=== PATIENT | female | born 1965 | race American Indian/Alaskan Native ===

== ENCOUNTER 2017-05-02 14:22 | Emergency (ER) | payer OTHER ==
[2017-05-02 15:42] VITALS: BP 148/96
[2017-05-02] MEDS ORDERED: CLEOCIN IM ONE (17:42)
[2017-05-02] MEDS ORDERED: PEPCID PO ONE (17:42)
[2017-05-02] MEDS ORDERED: DECADRON IM ONE (17:42)
--- NOTE | 2017-05-02 17:42 | Emergency Department Report ---
HPI - General Chief Complaint: Allergic Reaction Time Seen by Provider: 05/02/17 17:42 - HPI HPI: Patient here report that she has a allergic reaction from an bite yesterday. She states she took and off but she felt like her shoes was tight today at work and took her shoe off and repeat port that her left foot was red and swollen. She denies any shortness of breath or chest pain. Denies any personal history of blood clots or family history of blood clots. Denies any nausea or vomiting. Denies any fever or chills. Pain to foot is 8 out of 10 and dull. He has a history of asthma and surgical history of partial hysterectomy. Denies any numbness or tingling to extremities. Denies any loss of sensation to left foot. She says she took Benadryl and it helped the itching yesterday but now her foot is red and swollen. She denies any difficulty breathing. He denies any cough, stridor or wheezing. Denies any problem with swallowing or swelling his neck. ED Past Medical Hx - Past Medical History Previous Medical History?: Yes Hx Asthma: Yes - Surgical History Past Surgical History?: Yes Additional Surgical History: plastic surgery to face, Partial hysterectomy - Family History Family history: no significant - Social History Smoking Status: Never Smoker Substance Use Type: None - Medications Home Medications: Home Medications Medication Instructions Recorded Confirmed Last Taken Type Acetaminophen/Codeine 1 tab PO Q6H PRN #15 tab 09/13/14 Unknown Rx [Acetaminophen-Codeine #3 TAB] Ibuprofen [Motrin 800 MG tab] 800 mg PO TID PRN #21 tablet 09/13/14 Unknown Rx Cetirizine HCl [ZyrTEC] 10 mg PO QAM #7 capsule 05/02/17 Unknown Rx Clindamycin [Clindamycin CAP] 300 mg PO Q8H #30 cap 05/02/17 Unknown Rx predniSONE [Deltasone] 50 mg PO QDAY #5 tab 05/02/17 Unknown Rx ED Review of Systems ROS: Stated complaint: ALLERGIC RXN, ANT BITES Other details as noted in HPI Comment: All other systems reviewed and negative Constitutional: no symptoms reported ENT: denies: throat pain, congestion Respiratory: no symptoms reported Cardiovascular: denies: chest pain, palpitations, dyspnea on exertion, edema, syncope, paroxysmal nocturnal dyspnea Gastrointestinal: denies: nausea, vomiting Musculoskeletal: joint swelling, arthralgia. denies: back pain, myalgia Skin: rash, change in color, pruritus Neurological: denies: headache, numbness, paresthesias, confusion, abnormal gait , vertigo Physical Exam - Physical Exam Vital Signs: Vital Signs 05/02/17 15:37 Temperature 97.8 F Pulse Rate 87 Respiratory 18 Rate Blood Pressure 148/96 O2 Sat by Pulse 99 Oximetry General: This is a 51-year-old female well-nourished well-developed in no acute distress. Physical Exam: Head: Normocephalic, atraumatic, no abrasion, no bruising and no contusion. Eyes: Biateral pupils equal and reactive to light, bilateral EOM intact.. Bilateral conjunctival and sclera without injection, normal accommodation. Ears: Bilateral EAC without any redness drainage or swelling, Bilateral TM pearly portillo bilateral tragus is normal and nontender. No auricular abnormality. No Mastoid bones tenderness. Nose: Moist, normal mucosa without any drainage. No maxillary or frontal sinus tenderness. Mouth: No pharyngeal erythema or exudate. Uvula is midline and oral airways patent. Moist and tongue is normal. Lip without any swelling or abnormality. Neck: Supple, No Cervical adenopathy, full range of motion and no C-spine tenderness. No swelling or tracheal deviation Cardiovascular: S1, S2. Regular rate and rhythm. No murmur. Capillary refill is less then 3 seconds. Lungs: Clear to auscultate bilaterally. No rhonchi, wheezes or rales. No chest wall tenderness MSK: Strength 5/5 in all extremities. No joint deformity or crepitus. Normal inspection. Full range of motion to all extremities Extremities: No clubbing, cyanosis. With mild swelling to left foot dorsal aspect .+2 pulses. No neurovascular compromise. Skin: Clean, dry and intact. Erythema with swelling to left foot dorsal aspect with point of entry distal aspect between first and second metatarsal bone. Positive soft tissue swelling without any bony tenderness Psych: Normal mood and behavior. ED Course Vital Signs 05/02/17 15:37 Temperature 97.8 F Pulse Rate 87 Respiratory 18 Rate Blood Pressure 148/96 O2 Sat by Pulse 99 Oximetry - Reevaluation(s) Reevaluation #1: 05/02/17 18:53 Pt given Decadron 10 mg IM and Pepcid 40 mg by mouth in emergency room. Unable to give patient Benadryl because she is driving and swelling is mild and localized. She was also given clindamycin 600 mg IM for cellulitis. ED Medical Decision Making - Medical Decision Making D course: She is status post insect back yesterday with swelling to left dorsal aspect of foot. She has no restriction in movement and pulses are 2+. Patient was treated with Decadron 10 mg IM and Pepcid 40 mg by mouth because she said her foot got swollen after she got bit by ants. She was also treated with clindamycin 600 mg IM for cellulitis. Physical findings for mild swelling with erythema without any bony tenderness to left foot with point of entry between first and second metatarsal bone. Treated for allergy versus cellulitis which is localized. I discussed diagnosis and treatment plan the patient and she is in agreement and patient discharged home with prescription for clindamycin, Zyrtec, prednisone and Pepcid. I instructed patient that if affected area becomes more red and swollen, if she developed fever, chills, shortness of breath, wheezing or stridor and swelling of lips or tongue with difficulty swallowing to return to the emergency room he immediately otherwise follow up with her primary care physician in Friday. Critical care attestation.: If time is entered above; I have spent that time in minutes in the direct care of this critically ill patient, excluding procedure time. ED Disposition Clinical Impression: Cellulitis of foot, left Allergic reaction to insect sting Qualifiers: Encounter type: initial encounter Injury intent: accidental or unintentional Qualified Code(s): T63.481A - Toxic effect of venom of other arthropod, accidental (unintentional), initial encounter Insect bite of left foot Qualifiers: Encounter type: initial encounter Qualified Code(s): S90.862A - Insect bite ( nonvenomous), left foot, initial encounter; W57.XXXA - Bitten or stung by nonvenomous insect and other nonvenomous arthropods, initial encounter; W57.XXXA - Bitten or stung by nonvenomous insect and other nonvenomous arthropods, initial encounter Disposition: DC-01 TO HOME OR SELFCARE Is pt being admited?: No Does the pt Need Aspirin: No Condition: Stable Instructions: Allergies (ED), Insect Bite or Sting (ED), Arthralgia (ED), Cellulitis (ED) Additional Instructions: Please follow-up with primary care in 3 days. If you develop increased redness, swelling, restriction and left foot, increased pain, shortness of breath, wheezing, stridor, cough, difficulty breathing in or swallowing, swollen and the lips, face neck and pound please return to emergency room KELVIN Take medication as prescribed Keep affected area clean and dry Prescriptions: Cetirizine HCl [ZyrTEC] 10 mg PO QAM #7 capsule Clindamycin [Clindamycin CAP] 300 mg PO Q8H #30 cap predniSONE [Deltasone] 50 mg PO QDAY #5 tab Referrals: GABINO CORDON MD [Primary Care Provider] - 05/05/17 Forms: Work/School Release Form(ED)
== END 2017-05-02 19:19 | disposition home or self-care (01) ==
LOC: ED 14:22
DX: T63.481A Toxic effect of venom of other arthropod, accidental (unintentional), initial encounter (principal); L03.116 Cellulitis of left lower limb; S90.462A Insect bite (nonvenomous), left great toe, initial encounter; W57.XXXA Bitten or stung by nonvenomous insect and other nonvenomous arthropods, initial encounter; Y93.9 Activity, unspecified; Y92.9 Unspecified place or not applicable; Y99.9 Unspecified external cause status
CPT/HCPCS: 96372; 99282; J1100